=== PATIENT | male | born 1960 | race Caucasian/White ===

== ENCOUNTER → 2016-09-28 | Outpatient (CLI) | payer OTHER | LOC: KOH-I 15:30 | DX: I87.2 Venous insufficiency (chronic) (peripheral) (principal); M79.604 Pain in right leg; R60.9 Edema, unspecified | CPT/HCPCS: 93971 ==

== ENCOUNTER → 2020-06-01 | Outpatient (CLI) | payer OTHER ==
[~2020-06-01] MED LIST: COLACE 100MG C100 MG PO; COUMADIN2 MG PO; COUMADIN5 MG PO; DICLOFENAC SOD100 GM TD; ELIQUIS5 MG PO; FISH OIL CONCE1 EAC1 PO; LOVENOX SY120 MG/0.8 SQ; NORCO 7.5-3251 EACH PO; OMEPRAZOLE40 MG PO; PROAIR HFA8.5 GM INH; TOPROL XL100 MG PO; TORADOL 10 MG T10 MG PO; VALIUM 2 MG TAB2 MG PO; VICODIN ES 7.51 EACH PO; VITAMIN D32000 UNI1 PO; ZOFRAN4 MG PO
== END ==
LOC: HEART 5 05-26 11:00
DX: I87.1 Compression of vein (principal); I82.531 Chronic embolism and thrombosis of right popliteal vein; E66.9 Obesity, unspecified
CPT/HCPCS: 93970

== ENCOUNTER → 2020-06-02 | Outpatient (CLI) | payer OTHER | LOC: CT 12:55 | DX: I87.1 Compression of vein (principal); I65.23 Occlusion and stenosis of bilateral carotid arteries; K76.0 Fatty (change of) liver, not elsewhere classified; N20.0 Calculus of kidney | CPT/HCPCS: 36415; 82565; 93880; Q9967 ==

== ENCOUNTER → 2021-05-19 | Outpatient (CLI) | payer MEDICARE | LOC: KOH-I 09:23 | DX: N20.0 Calculus of kidney (principal); M47.816 Spondylosis without myelopathy or radiculopathy, lumbar region | CPT/HCPCS: 74019 ==

== ENCOUNTER → 2021-07-23 | Outpatient (CLI) | payer MEDICARE | LOC: KOH-I 10:56 | DX: N20.0 Calculus of kidney (principal) | CPT/HCPCS: 74018 ==